=== PATIENT | female | born 1940 | race Caucasian/White ===

== ENCOUNTER 2016-06-06 11:36 | Inpatient (IN) | payer MEDICARE ==
[2016-06-06] VITALS (7 sets, daily range): BP systolic 83–142
[~2016-06-06] VITALS: Ht 170.2 cm; Wt 67.1 kg
--- NOTE | 2016-06-06 11:50 | NUR ---
pt. placed in bed 3, assumed pt. care
--- NOTE | 2016-06-06 11:55 | NUR ---
Dr. Peace at bedside examining the pt.
[2016-06-06] MEDS ORDERED: RACEPINEPHRINE HCL 0.5 ML VIAL.NEB INH ONE (12:00)
[2016-06-06] MEDS ORDERED: DEXAMETHASONE SOD PHOSPHATE 10 MG/ML VIAL IVP ONE (12:00)
[2016-06-06] MEDS ORDERED: CLINDAMYCIN 600 mg/50mL D5W 50 ML IV ONE (12:00)
--- NOTE | 2016-06-06 12:00 | NUR ---
Pt. to ER awake alert verbal but only syas " yes" to every question, not able to communicate provided pen and paper for communication, touches and point to her throat, states "yes" to pain in her throat, sent from [facility] ( [facility] ), pt. present with phlegm/saliva in mouth, unable to swallow in and communicate otherwise stable VSS at this time, Hx of depression
--- NOTE | 2016-06-06 12:04 | NUR ---
RT AT BEDSIDE FOR BREATHING TREATMENT
--- NOTE | 2016-06-06 12:08 | NUR ---
LAB AT BEDSIDE FOR BLOOD DRAW
--- NOTE | 2016-06-06 12:16 | NUR ---
PT. OUT TO RADILOGY VIA [facility]
[2016-06-06 12:28] LABS: BASOPHILS % (AUTO) 0.4 % (0.0-2.0); EOSINOPHILS # (AUTO) 0.2 K/uL (0.0-0.4); EOSINOPHILS % (AUTO) 2.4 % (0.0-4.0); HEMATOCRIT 43.3 % (36-48); HEMOGLOBIN 14.6 g/dL (12.0-16.0); LYMPHOCYTES # (AUTO) 1.5 K/uL (1.0-5.5); LYMPHOCYTES % (AUTO) 19.6 % (20.5-51.5); MEAN CORPUSCULAR HEMOGLOBIN 31 pg (27-31); MEAN CORPUSCULAR HGB CONC 34 % (32-36); MEAN CORPUSCULAR VOLUME 91 fL (79.0-98.0); MONOCYTES # (AUTO) 0.6 K/uL (0.0-1.0); MONOCYTES % (AUTO) 7.4 % (1.7-9.3); NEUTROPHILS # (AUTO) 5.4 K/uL (1.8-7.7); NEUTROPHILS % (AUTO) 70.2 % (40.0-70.0); PLATELET COUNT (AUTO) 247 K/uL (130-430); RED BLOOD CELL COUNT(AUTO) 4.75 MIL/uL (4.2-6.2); WHITE BLOOD COUNT (AUTO) 7.7 K/uL (4.8-10.8)
[2016-06-06 12:32] LABS: ANION GAP 6 (5-15); CALCIUM 9.8 mg/dL (8.4-11.0); CHLORIDE 105 mmol/L (98-107); CREATININE 1.16 mg/dL (0.55-1.30); GLUCOSE 125 mg/dL (70-99); SODIUM SERUM 141 mmol/L (136-145); UREA NITROGEN, BLOOD 29 mg/dL (8-21)
--- NOTE | 2016-06-06 12:35 | NUR ---
# 22 gauge angiocath placed to rh. Use of asceptic technique. Opsite placed over site. Blood return noted. Flushed with 10 cc of normal saline. No evidence of infiltration noted. Patient tolerated well.
[2016-06-06 12:37] LABS: ALANINE AMINOTRANSFERASE 24 U/L (12-78); ALBUMIN 3.6 g/dL (3.4-4.8); ASPARTATE AMINOTRANSFERASE 29 U/L (10-37); TOTAL BILIRUBIN 0.6 mg/dL (0.0-1.0); TOTAL PROTEIN, SERUM 7.3 g/dL (6.4-8.3)
--- NOTE | 2016-06-06 12:55 | NUR ---
pt. provided with pen and a paper to write on to better understand her needs. pt. wrote " used it write" does not write anything else, gets very emotional and startes to weep every time there is an attempt to communicate
[2016-06-06] MEDS ORDERED: LORazepam 2 MG/ML VIAL (FOR ER USE) IVP ONE ×2 (13:15→17:30)
--- NOTE | 2016-06-06 14:10 | NUR ---
pt. out for CT via [facility]
[2016-06-06] MEDS ORDERED: IOHEXOL 100 ML IV ONE (14:20)
--- NOTE | 2016-06-06 14:30 | NUR ---
pt. back to room [address]
--- NOTE | 2016-06-06 15:10 | NUR ---
pt. was given a sip of water as per request however found unable to swallow
--- NOTE | 2016-06-06 16:22 | NUR ---
pt. was informed that she will be admittied to the hospital.
[2016-06-06] MEDS ORDERED: ONDANSETRON HCL 4 MG/2 ML VIAL IVP ONE (17:00)
--- NOTE | 2016-06-06 17:00 | NUR ---
dr. Johnson changed orders from Med Surg to ICU admit
[2016-06-06] MEDS ORDERED: SENN8.8S12 GT (17:44)
[2016-06-06] MEDS ORDERED: PARO-41 PO (17:44)
[2016-06-06] MEDS ORDERED: GABA-529 PO (17:44)
[2016-06-06] MEDS ORDERED: HYDR-1189 PO (17:44)
[2016-06-06] MEDS ORDERED: POTA-118 PO (17:44)
[2016-06-06] MEDS ORDERED: LISI40TA4 PO (17:44)
[2016-06-06] MEDS ORDERED: ATOR20TA64 PO (17:44)
[2016-06-06] MEDS ORDERED: DOCU-144 PO (17:44)
[2016-06-06] MEDS ORDERED: HYDR-4037 PO (17:44)
--- NOTE | 2016-06-06 17:45 | NUR ---
medication reconciliation completed
--- NOTE | 2016-06-06 17:50 | NUR ---
mrsa collected and sent to lab
--- NOTE | 2016-06-06 17:55 | NUR ---
Patient will be admitted to care of dr. miller. Admitted to icu unit. Will go to room 7. Belongings list completed. Summary report printed. Report will be given at bedside.
--- NOTE | 2016-06-06 18:00 | NUR ---
INITIAL NOTES ADMITTED PATIENT FROM ER PER [facility] WITH A DIAGNOSIS OF NECK MASS /NECK PAIN.ALERT AND ORIENTED WITH EXPRESSIVE APHASIA.DROOLING WITH FEW EPISODES OF NONPRODUCTIVE COUGH.BREATHING EVEN AND UNLABORED.COMPLAINING OF PAIN TO BILATERAL NECK.WITH IV SALINE LOCK TO RIGHT HAND;INTACT AND PATENT.ABLE TO MOVE SELF FROM GURNEY TO BED WITH ASSIST.SAFETY AND FALL PRECAUTIONS IN PLACE.ORIENTED TO ROOM AND FACILITY.CALL LIGHT WITHIN REACH.
--- NOTE | 2016-06-06 18:45 | NUR ---
CALLED DR. ZHANG AND DR. FITZPATRICK FOR CONSULTS. NURSE IS AWARE.
--- NOTE | 2016-06-06 19:00 | NUR ---
DR. RAYMOND, DR. RAYMOND WAS PAGED REGARDING HEART RATE. RETURNED CALL AND WAS NOTIFIED OF HEART RATE 130-140 AT [facility]. ORDERS RECEIVED FOR STAT ECG, CXR AND CONSULT FOR DR. HOWARD.
--- NOTE | 2016-06-06 19:15 | NUR ---
PATIENT ON BED AWAKE.STABLE.NO ACUTE DISTRESS.ENDORSED TO NEXT SHIFT ACCORDINGLY
--- NOTE | 2016-06-06 20:54 | NUR ---
DR ANITA Xavier here evaluating pt.
[2016-06-06] MEDS ORDERED: DIGOXIN 0.25 MG TABLET PO ONE (21:15)
[2016-06-06] MEDS ORDERED: ENOXAPARIN SODIUM 60 MG/0.6 ML SYRINGE SUBCUT ONE (21:30)
--- NOTE | 2016-06-06 21:30 | NUR ---
ASSUMED PT CARE FROM PREVIOUS RN, PT AA. VERY ANXIOUS, AND RESTLESS. APHASIC, FRUSTRATED WHILE TRYING TO COMMUNICATE. TRYING TO WRITE WITH LT HAND RT HAND IS WEAK FROM PREVIOUS STROKE. CAN'T WRITE ANYTHING, WRITING " DODODOD". GAVE HER REASSURANCE AND TLC. MADE HER COMFORTABLE.
[2016-06-06] MEDS ORDERED: cefTRIAXone 1 GM VIAL ONE (21:53)
[2016-06-06 21:55] LABS: PROTHROMBIN TIME 10.8 SECS (9.5-12.5)
--- NOTE | 2016-06-06 22:00 | NUR ---
IVF AND IVPB ALL STARTED As per order. LOVENOX GIVEN PER 'S ORDER AFTER NOTIFIED HIM WITH PT INR RESULT.ALSO MED WITH DIGOXIN 0.25 MG IV HR IS 140.
[2016-06-06] MEDS: D5/0.45 NS 1,000 ML IV SCH (22:04)
[2016-06-06] MEDS: cefTRIAXone 1 GM IVPB PREMIX 50 ML IV SCH (22:07)
[2016-06-06] MEDS ORDERED: DIGOXIN 0.5 MG/2 ML AMP ONE (22:29)
[2016-06-06] MEDS ORDERED: DIGOXIN 0.5 MG/2 ML AMP IVP ONE (22:30)
--- NOTE | 2016-06-06 22:30 | NUR ---
PAIN, PT C/O PAIN ALL THE WAY FROM MID BACK TO FOOT. MED WITH DILAUDID PER ORDER.
[2016-06-06] MEDS: HYDROmorphone 1 MG INJ. 1 MG/ML AMPUL IVP PRN (22:31)
[2016-06-07] VITALS (24 sets, daily range): BP systolic 90–163
--- NOTE | 2016-06-07 01:00 | NUR ---
HR, RHYTHM CONTROLLED AFIB. PT SLEEPING . NO DISTRESS NOTED.
--- NOTE | 2016-06-07 05:30 | NUR ---
CHG BATH, CHG BATH GIVEN .MADE PT COMFORTABLE. VOIDED VIA BEDPAN.
[2016-06-07] MEDS: D5/0.45 NS 1,000 ML IV SCH ×2 (06:20→14:17)
--- NOTE | 2016-06-07 07:13 | NUR ---
REPORT GIVEN TO ONCOMING RN.
[2016-06-07 07:23] LABS: PROTHROMBIN TIME 31.4 SECS (9.5-12.5)
[2016-06-07 07:24] LABS: INR 2.8 (0.8-1.2)
--- NOTE | 2016-06-07 08:00 | NUR ---
AM ASSESSMENT. PT MAKING EYE CONTACT, AND TRIED TO COMMUNICATE USING PEN AND PAPER, ONE LETTER SOUND HEARD FROM HER, TEARY AFTER MANY ATTEMPTS TO COMMUNICATE, BED ALVARADO WAS OFFERED AND EAGERLY TURNED AND LIFTED HER HIPS WHILE IN BED, DISPOSABLE SHEET ALREADY SOILED, PERINEAL CARE PROVIDED AFTER SHE VOIDED A SMALL AMOUNT.
--- NOTE | 2016-06-07 08:41 | NUR ---
CONSULT. DR HOWARD WENT TO EXAMINE PT. PT COMPLAINED OF GENERALIZED PAIN, POINTED FROM BODY TO TOES.
[2016-06-07] MEDS: HYDROmorphone 1 MG INJ. 1 MG/ML AMPUL IVP PRN ×3 (08:53→21:55)
--- NOTE | 2016-06-07 08:53 | NUR ---
PAIN. MEDICATED PT WITH DILAUDID 1 MG IVP.
[2016-06-07] MEDS: DIGOXIN 0.5 MG/2 ML AMP IVP SCH (08:54)
[2016-06-07] MEDS: ENOXAPARIN SODIUM 60 MG/0.6 ML SYRINGE SUBCUT SCH ×2 (08:54→21:31)
[2016-06-07 09:13] LABS: BASOPHILS % (AUTO) 0.3 % (0.0-2.0); HEMATOCRIT 38.7 % (36-48); HEMOGLOBIN 13.1 g/dL (12.0-16.0); LYMPHOCYTES # (AUTO) 1.8 K/uL (1.0-5.5); LYMPHOCYTES % (AUTO) 18.3 % (20.5-51.5); MEAN CORPUSCULAR HEMOGLOBIN 31 pg (27-31); MEAN CORPUSCULAR HGB CONC 34 % (32-36); MEAN CORPUSCULAR VOLUME 92 fL (79.0-98.0); MONOCYTES # (AUTO) 0.8 K/uL (0.0-1.0); MONOCYTES % (AUTO) 8.5 % (1.7-9.3); NEUTROPHILS # (AUTO) 7.4 K/uL (1.8-7.7); NEUTROPHILS % (AUTO) 72.9 % (40.0-70.0); PLATELET COUNT (AUTO) 230 K/uL (130-430); RED BLOOD CELL COUNT(AUTO) 4.22 MIL/uL (4.2-6.2)
[2016-06-07 09:30] LABS: ANION GAP 3 (5-15); CHLORIDE 105 mmol/L (98-107); CREATININE 1.15 mg/dL (0.55-1.30); GLUCOSE 138 mg/dL (70-99); POTASSIUM 3.8 mmol/L (3.5-5.1); SODIUM SERUM 137 mmol/L (136-145); UREA NITROGEN, BLOOD 31 mg/dL (8-21)
[2016-06-07 09:33] LABS: ALANINE AMINOTRANSFERASE 19 U/L (12-78); ALBUMIN 3.2 g/dL (3.4-4.8); ASPARTATE AMINOTRANSFERASE 20 U/L (10-37); TOTAL BILIRUBIN 0.3 mg/dL (0.0-1.0); TOTAL PROTEIN, SERUM 6.9 g/dL (6.4-8.3)
--- NOTE | 2016-06-07 10:12 | NUR ---
consult for dr. mendez called spoke to radha dialed [phone]
[2016-06-07] MEDS ORDERED: *PPN PER PHARMACY XX PRN (10:15)
[2016-06-07] MEDS ORDERED: DEXTROSE 50% JECT 50 ML DISP.SYRIN IVP PRN (10:15)
--- NOTE | 2016-06-07 10:25 | NUR ---
PICC. CONSENT SIGNED BY PT AFTER EXPLANATION ON THE RISK AND BENEFITS.
[2016-06-07 11:13] LABS: PHOSPHORUS 3.8 mg/dL (2.7-4.5)
--- NOTE | 2016-06-07 11:15 | NUR ---
ECHOCARDIOGRAM. STEEL ANALYST REPORTED EJECTION FRACTION 66%.
--- NOTE | 2016-06-07 11:55 | NUR ---
PICC. NEW MIDLINE CATHETER IN LEFT A/C, NOTED BLEEDING TO SITE.
--- NOTE | 2016-06-07 12:05 | NUR ---
MIDLINE CATH. CHARGE NURSE WRAPPED COBAN ELASTIC BANDAGE TO LEFT A/C .
--- NOTE | 2016-06-07 12:23 | NUR ---
CONSULT. DR DEJESUS CALLED, REPORTED TO MD ABOUT RESULT OF CT SCAN OF THE NECK, STATED THAT HE DOES NOT SEE PT UNDER [employer].
--- NOTE | 2016-06-07 12:55 | NUR ---
consult for an keyes (dr. pearson special education kindergarten teacher) called spoke to dot dialed [phone]
--- NOTE | 2016-06-07 13:11 | NUR ---
CONSULT. DR DELUCA, N CALLED. NOTIFIED MD OF PT'S STATUS. SUGGESTED A NECK BIOPSY. MD STATED THAT HE WILL COME IN TO SEE PT TONIGHT OR EARLY IN THE MORNING.
[2016-06-07] MEDS ORDERED: [UNRECOGNIZED DRUG - OTHER] IV SCH ×11 (13:15)
[2016-06-07] MEDS ORDERED: POTASSIUM CHLORIDE IV SCH ×11 (13:15)
[2016-06-07] MEDS ORDERED: TPN PERIPHERAL IV SCH ×11 (13:15)
[2016-06-07] MEDS ORDERED: SODIUM ACETATE IV SCH ×11 (13:15)
[2016-06-07] MEDS ORDERED: IOHEXOL 100 ML IV ONE (13:28)
--- NOTE | 2016-06-07 13:45 | NUR ---
TO RADIOLOGY DEPT. TRANSPORTED TO CT SCAN DEPT VIA PORTABLE CARDIAC MONITORING.
--- NOTE | 2016-06-07 14:00 | NUR ---
TO ICU. RETURNED TO ROOM 7 WITHOUT ANY SIGNS OF DISTRESS.
[2016-06-07] MEDS: INSULIN REGULAR, HUMAN 100 UNITS/ML, 10 ML VIAL (novoLIN R) SUBCUT PRN ×2 (14:31→21:59)
--- NOTE | 2016-06-07 15:06 | NUR ---
PAIN. PT ANGRY WITH FRUSTRATION DURING INTERACTION, DILAUDID 1 MG IVP FOR BODY DISCOMFORTS GIVEN.
[2016-06-07] MEDS: FAT EMULSIONS 250 ML IV SCH (15:22)
[2016-06-07] MEDS: SODIUM ACETATE IV SCH ×11 (15:25)
[2016-06-07] MEDS: TPN PERIPHERAL IV SCH ×11 (15:25)
[2016-06-07] MEDS: POTASSIUM CHLORIDE IV SCH ×11 (15:25)
[2016-06-07] MEDS: [UNRECOGNIZED DRUG - OTHER] IV SCH ×11 (15:25)
--- NOTE | 2016-06-07 15:25 | NUR ---
REST. PT CALM AT THIS HOUR, CONTINUE TO MONITOR.
[2016-06-07] MEDS: LORazepam 2 MG/ML VIAL IVP PRN (17:40)
--- NOTE | 2016-06-07 17:40 | NUR ---
ANXIETY. PT SEEN WAVING HER HAND TO STAFF, EYES TEARY, MOANING SOUND, ATTEMPTED TO COMMUNICATE THRU WRITING, WOULD REPEAT ONE LETTER, STUTTER SOUND, GOT UPSET WHEN SHE COULD NOT GIVE HER THOUGHTS, MEDICATED WITH ATIVAN 0.5 MG IVP TO REDUCE HER ANXIETY.
[2016-06-07] MEDS ORDERED: HALOPERIDOL LACTATE 5 MG/ML VIAL IVP ONE (18:30)
--- NOTE | 2016-06-07 18:43 | NUR ---
ANXIETY. PT SEEN TRYING TO GET OUT OF HER BED ALTHOUGH SHE WAS TOLD TO GET HELP FIRST, GOT ANGRIER WHEN DISCOURAGED ON HER BEHAVIOR, MOANING DURING INTERACTION, HALDOL 1 MG IVP GIVEN.
--- NOTE | 2016-06-07 19:00 | NUR ---
REPORT. GIVEN TO ONCOMING AIR REDUCTION EQUIPMENT OPERATOR NURSE.
--- NOTE | 2016-06-07 19:30 | NUR ---
pt.assessed.pt.presents stable status.pt.presents mid line:lt.arm.pt.receiving the administration:ppn/lipids,iv fluids via line.pt.presents iv access:rt.hand:locked.pt.presents room air:o2 sat%=96%.pt.presents expressive asphasia: pt.speech garbled.slurred.alternative method:communication via writing board.call light w/in pt's reach. Addendum: 06/08/16 at 0318 by Jovi Siegel RN pt.presents telemetry status.telemetry presents a-fib;controlled.
--- NOTE | 2016-06-07 20:30 | NUR ---
pt.requested the bedpan.i have assisted pt.urine return.measured.no other request @this hour. call light placed w/in pt's reach.
--- NOTE | 2016-06-07 21:30 | NUR ---
blood glucose assessed:152mg/dl.i have conveyed to the pt.the necessity og the monitoring of the blood glucose. regarding the administration of the ppn:demonstrating bag to the pt.pt.nodded head gesture understanding. 2 units;regualr insulin administered per the sliding scale.erasto reviewed and cosigned for the insulin.
[2016-06-07] MEDS: cefTRIAXone 1 GM IVPB PREMIX 50 ML IV SCH (21:31)
--- NOTE | 2016-06-07 22:00 | NUR ---
pt.assessed.pt.requesting pain medication.confirmed request utilizing communication board.i have administered dilaudid:2mg ivp.to follow up pain efficacy per protocol.call light placed w/in pt's reach.
[2016-06-08] VITALS (17 sets, daily range): BP systolic 91–157
--- NOTE | 2016-06-08 | NUR ---
pt.assessed.pt.presents stable status.v/s assessed.values w/in normal limits.iv fluids infusing,ppn/lipids infusing. pt.presents quiescent affect;calm,asleep.call light w/in pt's reach.
--- NOTE | 2016-06-08 00:30 | NUR ---
pt.assessed.pt.requested the bedpan.pt.stating that she senses a bowel movement.i have returned to assess the pt. no bowel movement manifested.bedpan;emptied presented to pt's view.call light placed w.in pt's reach.
--- NOTE | 2016-06-08 01:00 | NUR ---
i have assessed and changed the mid line dressing:lt.antecubital.blood saturated dressing.dressing changed per sterile technique.pt.tolerated the procedure.i have cleaned the lips and applied lip moisturizure.i have suctioned oral cavity.
--- NOTE | 2016-06-08 02:00 | NUR ---
ASSUMED CARE ASSUMED CARE OF PT, REPORT RECEIVED AT BEDSIDE FROM AYDEN JACKSON.
--- NOTE | 2016-06-08 06:46 | NUR ---
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 ISOLATION PRECAUTIONS IMPLEMENTED.
[2016-06-08 06:51] LABS: BASOPHILS % (AUTO) 0.5 % (0.0-2.0); EOSINOPHILS # (AUTO) 0.2 K/uL (0.0-0.4); EOSINOPHILS % (AUTO) 2.5 % (0.0-4.0); HEMATOCRIT 37.9 % (36-48); HEMOGLOBIN 12.9 g/dL (12.0-16.0); LYMPHOCYTES # (AUTO) 1.9 K/uL (1.0-5.5); LYMPHOCYTES % (AUTO) 20.9 % (20.5-51.5); MEAN CORPUSCULAR HEMOGLOBIN 31 pg (27-31); MEAN CORPUSCULAR HGB CONC 34 % (32-36); MEAN CORPUSCULAR VOLUME 91 fL (79.0-98.0); MONOCYTES # (AUTO) 0.7 K/uL (0.0-1.0); MONOCYTES % (AUTO) 7.8 % (1.7-9.3); NEUTROPHILS # (AUTO) 6.5 K/uL (1.8-7.7); NEUTROPHILS % (AUTO) 68.3 % (40.0-70.0); PLATELET COUNT (AUTO) 210 K/uL (130-430); RED BLOOD CELL COUNT(AUTO) 4.17 MIL/uL (4.2-6.2); RED CELL DISTRIBUTION WIDTH 13.4 % (9.0-15.0); WHITE BLOOD COUNT (AUTO) 9.3 K/uL (4.8-10.8)
[2016-06-08 06:56] LABS: ALANINE AMINOTRANSFERASE 20 U/L (12-78); ALBUMIN 3.3 g/dL (3.4-4.8); ANION GAP 5 (5-15); ASPARTATE AMINOTRANSFERASE 29 U/L (10-37); CALCIUM 8.9 mg/dL (8.4-11.0); CHLORIDE 105 mmol/L (98-107); CREATININE 0.74 mg/dL (0.55-1.30); GLUCOSE 99 mg/dL (70-99); POTASSIUM 3.6 mmol/L (3.5-5.1); SODIUM SERUM 140 mmol/L (136-145); TOTAL BILIRUBIN 0.2 mg/dL (0.0-1.0); TOTAL PROTEIN, SERUM 6.8 g/dL (6.4-8.3); UREA NITROGEN, BLOOD 16 mg/dL (8-21)
[2016-06-08 07:18] LABS: INR 1.7 (0.8-1.2); PROTHROMBIN TIME 19.1 SECS (9.5-12.5)
--- NOTE | 2016-06-08 07:19 | NUR ---
CLOSING ALL NEEDS MET. ENDORSED CARE TO DAY NURSE AYDEN CADROSO.
[2016-06-08] MEDS: ENOXAPARIN SODIUM 60 MG/0.6 ML SYRINGE SUBCUT SCH ×2 (08:15→21:22)
[2016-06-08] MEDS: HYDROmorphone 1 MG INJ. 1 MG/ML AMPUL IVP PRN ×2 (08:17→19:23)
--- NOTE | 2016-06-08 08:17 | NUR ---
PAIN. PT SEEN BY DR HOWARD, TO HOLD LOVENOX, PT PROBABLY WILL HAVE A BIOPSY OF THE MASS IN HER NECK. PT ALERT, EYES MOIST FROM CRYING, ASSESSED FOR PAIN, SHE RUBBED THE UPPER ABDOMEN AND WENT DOWN TO HER THIGHS, DILAUDID 1 MG IVP ADMINISTERED.
--- NOTE | 2016-06-08 08:40 | NUR ---
REST. PT ASSESSED FOR BODY DISCOMFORT, FLAT AFFECT, EYES LOOKING STRAIGHT TO STAFF, REPEATED QUESTION, PT NO RESPONSE AT THIS TIME.
--- NOTE | 2016-06-08 08:58 | NUR ---
Nutrition Update Crispin Scale 15 noted. Pt admitted for neck pain, neck mass. Diet: regular BMI: 23.2 kg/m2 RD to follow per nutrition care standards.
[2016-06-08] MEDS: DIGOXIN 0.5 MG/2 ML AMP IVP SCH (09:26)
--- NOTE | 2016-06-08 09:38 | NUR ---
consult for dr. stanley called spoke to felipe dialed [phone]
[2016-06-08] MEDS ORDERED: PARoxetine HCL 20 MG TABLET PO ONE (09:45)
[2016-06-08] MEDS: TPN PERIPHERAL IV SCH ×11 (12:20)
[2016-06-08] MEDS: POTASSIUM CHLORIDE IV SCH ×11 (12:20)
[2016-06-08] MEDS: [UNRECOGNIZED DRUG - OTHER] IV SCH ×11 (12:20)
[2016-06-08] MEDS: SODIUM ACETATE IV SCH ×11 (12:20)
--- NOTE | 2016-06-08 12:45 | NUR ---
CONSULT. DR DELUCA HERE AND EXAMINED PT.
--- NOTE | 2016-06-08 13:45 | NUR ---
TEST. SWALLOWING EVALUATION IN PROGRESS.
--- NOTE | 2016-06-08 14:00 | NUR ---
S.T. SWALLOW EVAL COMPLETED. PT PRESENTS W/ MOD ORAL DYSPHAGIA W/ PROLONGED MASTICATION, R LEAKAGE ON SOLIDS, ORAL RESIDUE AND SPITTING OUT OF RESIDUE ON SOLIDS. NO S/S OF ASPIRATION. REC: PUREE DIET. NURSES SHARRON AND WALKER NOTIFIED. [id number] CJ [id number] CJ [id number] CJ NOMS LEVEL 5
[2016-06-08] MEDS: FAT EMULSIONS 250 ML IV SCH (14:20)
--- NOTE | 2016-06-08 14:30 | NUR ---
RECEIVED REPORT AND ASSUMED CARE. PT TRANSFERRED VIA WHEELCHAIR TO 105A WITH BELONGINGS. CALL PARMAR IN REACH. SIDE RAILS UP.
--- NOTE | 2016-06-08 17:30 | NUR ---
PT FED HERSELF DINNER WITHOUT PROBLEMS. NO COUGHING HEARD. WILL CONTINUE TO MONITOR.
--- NOTE | 2016-06-08 19:00 | NUR ---
DR BASS IN TO SEE PT.
--- NOTE | 2016-06-08 19:15 | NUR ---
REPORT GIVEN TO ONCOMING NURSE.
--- NOTE | 2016-06-08 19:50 | NUR ---
Initial Notes Patient laying in bed, awake and alert, speech xzylpcp-kppgum-Oy: CVA. No SOB noted, on room air. IV site patent, flushes well, infusing lipids and other fluid as ordered. No s/s of hyper/hypoglycemia. No s/s of nausea/vomiting at this time. Patient repositioned self in bed. Contact isolation maintained. Fall precautions maintained. Goal of pain management, cardiac and GI stability and safety this shift. Will continue to monitor.
--- NOTE | 2016-06-08 22:05 | NUR ---
Notes Patient resting in bed. No s/s of pain or discomfort noted. No SOB noted. IV site patent, flushes well, infusing fluids as ordered. Will continue to monitor.
[2016-06-08] MEDS ORDERED: cefTRIAXone 1 GM VIAL ONE (22:13)
[2016-06-08] MEDS: cefTRIAXone 1 GM IVPB PREMIX 50 ML IV SCH (22:18)
[2016-06-08] MEDS: HALOPERIDOL LACTATE 5 MG/ML VIAL IVP PRN (22:47)
--- NOTE | 2016-06-08 23:56 | NUR ---
Notes Recently medicated patient with Haldol, pt noted to be restless and agitated. Patient trying to communicate and write down what she wants to say, unable to understand patient. Charge nurse aware, able to help with patient. No SOB noted. IV site patent, flushes well, infusing fluids as ordered. Will continue to monitor.
[2016-06-09] VITALS (7 sets, daily range): BP systolic 114–135
[2016-06-09] MEDS: LORazepam 2 MG/ML VIAL IVP PRN ×2 (00:45→22:43)
--- NOTE | 2016-06-09 04:23 | NUR ---
Notes Patient sleeping at this time. No s/s of pain or discomfort noted. No SOB noted. IV site patent, flushes well, infusing fluids as ordered. Will continue to monitor.
--- NOTE | 2016-06-09 06:49 | NUR ---
Closing Notes No SOB noted, on room air. IV site patent, flushes well, infusing lipids and other fluid as ordered. No s/s of hyper/hypoglycemia. No s/s of nausea/vomiting at this time. Patient repositioned self in bed. Contact isolation maintained. Fall precautions maintained. Goal of pain management, cardiac and GI stability and safety met. Will continue to monitor.
[2016-06-09] MEDS ORDERED: LIDOCAINE/EPI 1% 1:100000 20 ML VIAL INJ ONE (07:30)
[2016-06-09] MEDS ORDERED: NS IRRIG SOLN 1000 ML IR ONE (07:30)
--- NOTE | 2016-06-09 07:30 | NUR ---
AM ROUNDS PATIENT RESTING IN BED, AWAKE, ALERT AND ORIENTED X4, PATIENT HAS GARBLED SPEECH AND USES A PENCIL AND PAPER TO COMMUNICATE NEEDED, PATIENT DENIES PAIN, ASSESSMENT COMPLETE, EDUCATED THE PATIENT PEDIATRIC AUDIOLOGIST LIGHT SYSTEM AND TO CALL FOR ANY ASSISTANCE, PATIENT NODDED IN UNDERSTANDING AT THIS TIME, WILL CONTINUE TO MONITOR, BED IN LOWEST POSITION, THREE SIDE RAILS UP, BED ALARM ON, BED CLOSE TO NURSE'S STATION, FALL, ASPIRATION AND ISOLATION PRECAUTIONS IN PLACE.
[2016-06-09 07:38] LABS: INR 1.1 (0.8-1.2); PROTHROMBIN TIME 12.3 SECS (9.5-12.5)
[2016-06-09] MEDS: ENOXAPARIN SODIUM 60 MG/0.6 ML SYRINGE SUBCUT SCH ×3 (08:18→21:04)
[2016-06-09] MEDS: PARoxetine HCL 20 MG TABLET PO SCH (08:18)
--- NOTE | 2016-06-09 08:20 | NUR ---
RN ROUNDS PATIENT ATTEMPTING TO GET OUT BED TO THE RESTROOM, PATIENT REEDUCATED TO CALL FOR ASSISTANCE, PATIENT HAS WEAKNESS AND UNSTEADY GAIT, ASSISTED THE PATIENT TO THE RESTROOM AND BACK TO BED, PLACED A BEDSIDE COMMODE AT THE BEDSIDE, EDUCATED THE PATIENT ON MEDICATION AND POTENTIAL SIDE EFFECTS, PATIENT VERBALIZED UNDERSTANDING AND TOLERATED WELL, PATIENT REFUSED LOVENOX AT THIS TIME, EXPLAINED BENEFITS OF THIS MEDICATION, PATIENT STILL REFUSED, NO OTHER NEEDS AT THIS TIME, BED IN LOWEST POSITION, BED ALARM ON, BED CLOSE TO NURSE'S STATION, FALL, ASPIRATION, ISOLATION PRECAUTIONS IN PLACE, CALL LIGHT NEXT TO THE PATIENTS' HAND.
[2016-06-09] MEDS: DIGOXIN 0.5 MG/2 ML AMP IVP SCH (08:24)
--- NOTE | 2016-06-09 08:42 | NUR ---
DR GRAJEDA ROUNDS HERE TO SEE THE PATIENT AT THIS TIME, WILL FOLLOW UP WITH ANY NEW ORDERS.
--- NOTE | 2016-06-09 10:03 | NUR ---
CONSULTATION CALLED REASON FOR CONSULT: NECK LYMPH NODES WHO WAS NOTIFIED: AUBREE CONSULTING DR: LENI ASCENCIO TONGUE LINING STITCHER NUMBER: [phone]
--- NOTE | 2016-06-09 10:30 | NUR ---
RN ROUNDS PATIENT RESTING IN BED, EYES CLOSED, BREATHING IS EVEN AND UNLABORED, NO SIGNS OF DISTRESS, BED IN LOWEST POSITION, THREE SIDE RAILS UP, BED ALARM ON, BED CLOSE TO NURSE'S STATION, FALL, ASPIRATION AND ISOLATION PRECAUTIONS IN PLACE, WILL CONTINUE TO MONITOR, SPOKE WITH THE PATIENT'S DAUGHTER AND CAREGIVER OVER THE PHONE, DISCUSSED PLAN OF CARE AND POTENTIAL RIGHT NECK BIOPSY.
[2016-06-09] MEDS: SODIUM ACETATE IV SCH ×11 (10:35)
[2016-06-09] MEDS: [UNRECOGNIZED DRUG - OTHER] IV SCH ×11 (10:35)
[2016-06-09] MEDS: TPN PERIPHERAL IV SCH ×11 (10:35)
[2016-06-09] MEDS: POTASSIUM CHLORIDE IV SCH ×11 (10:35)
[2016-06-09] MEDS: METOPROLOL TARTRATE 5 MG/5 ML VIAL IVP PRN (11:09)
--- NOTE | 2016-06-09 11:09 | NUR ---
HIGH BLOOD PRESSURE SPORTS BOOK BOARD ATTENDANT INFORMED RN OF HIGH BLOOD PRESSURE 180/88, WILL FOLLOW UP WITH MEDICATION AND WILL REASSESS BLOOD PRESSURE, WILL CONTINUE TO MONITOR, PATIENT BED IN LOWEST POSITION, THREE SIDE RAILS UP, BED ALARM ON, BED CLOSE TO NURSE'S STATION, FALL, ASPIRATION AND ISOLATION PRECAUTIONS IN PLACE, CALL LIGHT NEXT TO THE PATIENT'S HAND, WILL CONTINUE TO MONITOR.
--- NOTE | 2016-06-09 11:45 | NUR ---
BLOOD PRESSURE REASSESSMENT RE ASSESSED BLOOD PRESSURE, 135/75 AT THIS TIME, NO SIGNS OF DISTRESS.
--- NOTE | 2016-06-09 13:09 | NUR ---
RN ROUNDS PATIENT RESTING IN BED, EYES CLOSED, BREATHING IS EVEN AND UNLABORED, NO SIGNS OF DISTRESS, BED IN LOWEST POSITION, THREE SIDE RAILS UP, BED ALARM ON, BED CLOSE TO NURSE'S STATION, FALL, ASPIRATION AND ISOLATION PRECAUTIONS IN PLACE, CALL LIGHT NEXT TO THE PATIENT'S HAND, WILL CONTINUE TO MONITOR.
[2016-06-09] MEDS: HALOPERIDOL LACTATE 5 MG/ML VIAL IVP PRN (13:31)
--- NOTE | 2016-06-09 14:31 | NUR ---
PATIENT OFF THE UNIT FOR ULTRASOUND GUIDED BIOPSY WITH DR ASCENCIO, STABLE CONDITION.
[2016-06-09] MEDS: FAT EMULSIONS 250 ML IV SCH (16:19)
[2016-06-09] MEDS: HYDROmorphone 1 MG INJ. 1 MG/ML AMPUL IVP PRN (16:20)
--- NOTE | 2016-06-09 16:20 | NUR ---
PATIENT BACK ON THE UNIT STABLE CONDITION, COMPLAINING OF SEVERE NECK PAIN, EDUCATED ON PAIN MEDICATION AND POTENTIAL SIDE EFFECTS, PATIENT VERBALIZED UNDERSTANDING, IV SITE IS PATENT WITH NO SIGNS OF INFILTRATION, BED IN LOWEST POSITION, THREE SIDE RAILS UP, BED ALARM ON, FALL, ASPIRATION AND ISOLATION PRECAUTIONS IN PLACE, BED CLOSE TO NURSE'S STATION, CALL LIGHT IN THE PATIENT'S HAND.
--- NOTE | 2016-06-09 16:53 | NUR ---
SPOKE WITH DR SHERWOOD STATED TO DC PATIENT TO SNF WHEN BED AVAILABLE, POSSIBLY BACK TO [facility], WILL UPDATE CASE MANAGEMENT.
--- NOTE | 2016-06-09 18:16 | NUR ---
CLOSING NOTES PATIENT RESTING IN BED, ASPIRATION PRECAUTIONS IN PLACE, PATIENT IS FINISHING DINNER AT THIS TIME, ALL NEEDS MET, BED IN LOWEST POSITION, THREE SIDE RAILS UP, BED ALARM ON, BED CLOSE TO NURSE'S STATION, FALL AND ISOLATION PRECAUTIONS IN PLACE, CALL LIGHT NEXT TO THE PATIENT'S HAND, WILL ENDORSE REPORT TO NOC SHIFT NURSE.
--- NOTE | 2016-06-09 19:50 | NUR ---
Initial Notes Patient laying in bed, awake and alert, speech emwiykj-yrbkjx-Kv: CVA. No SOB noted, on room air. IV site patent, flushes well, infusing lipids, TPN and other fluid as ordered. No s/s of hyper/hypoglycemia. No s/s of nausea/vomiting at this time. Patient repositioned self in bed. Contact isolation maintained. Fall precautions maintained. Goal of pain management, cardiac and GI stability and safety this shift. Will continue to monitor.
--- NOTE | 2016-06-09 21:05 | NUR ---
PAGED: I PAGED DR. GRAJEDA @ [phone] I SPOKE WITH MITZY CHUNG I PAGED SECOND TIME @ I SPOKE WITH NIKIA EXCHANGE DR. GRAJEDA CALLED BACK @ [phone]
[2016-06-09] MEDS: cefTRIAXone 1 GM IVPB PREMIX 50 ML IV SCH (22:41)
--- NOTE | 2016-06-10 00:15 | NUR ---
Notes Recently medicated patient with Ativan, pt noted to be restless and agitated. Afebrile. No SOB noted. IV site patent, flushes well, infusing fluids as ordered. Will continue to monitor.
[2016-06-10] MEDS ORDERED: HYDR-1189 PO (03:37)
[2016-06-10] MEDS ORDERED: WARF3TAB2 PO (03:37)
[2016-06-10] MEDS ORDERED: PHEL5 PO (03:37)
[2016-06-10] MEDS ORDERED: WARF2TAB2 PO (03:37)
[2016-06-10] MEDS ORDERED: PARO-41 PO (03:37)
[2016-06-10] MEDS ORDERED: DOCU-144 PO (03:37)
[2016-06-10] MEDS ORDERED: SENN-153 PO ×2 (03:37)
[2016-06-10] MEDS ORDERED: LIP20 PO (03:37)
[2016-06-10] MEDS ORDERED: ALPR0.2583 PO ×2 (03:37)
[2016-06-10] MEDS ORDERED: HYDR-4037 PO (03:37)
[2016-06-10] MEDS ORDERED: GABA-529 PO (03:37)
[2016-06-10] MEDS ORDERED: LISI40TA4 PO (03:37)
[2016-06-10] MEDS ORDERED: ZOLP5TAB2 PO (03:37)
[2016-06-10 03:58] VITALS: BP_SYST 165
--- NOTE | 2016-06-10 04:00 | NUR ---
Notes Patient sleeping at this time, recently used the bedside commode to void-assisted pt. Afebrile. No SOB noted. IV site patent, flushes well, infusing fluids as ordered. Will continue to monitor.
[2016-06-10] MEDS: METOPROLOL TARTRATE 5 MG/5 ML VIAL IVP PRN (05:01)
[2016-06-10] MEDS: SODIUM ACETATE IV SCH ×11 (06:00)
[2016-06-10] MEDS: [UNRECOGNIZED DRUG - OTHER] IV SCH ×11 (06:00)
[2016-06-10] MEDS: TPN PERIPHERAL IV SCH ×11 (06:00)
[2016-06-10] MEDS: POTASSIUM CHLORIDE IV SCH ×11 (06:00)
[2016-06-10 06:04] VITALS: BP_SYST 145
--- NOTE | 2016-06-10 06:14 | NUR ---
Closing Notes No SOB noted, on room air. IV site patent, flushes well, infusing lipids, TPN and other fluid as ordered. No s/s of hyper/hypoglycemia. No s/s of nausea/vomiting at this time. Patient repositioned self in bed. Accucheck done- Blood sugar within normal limits. Contact isolation maintained. Fall precautions maintained. Goal of pain management, cardiac and GI stability and safety met. Will continue to monitor.
[2016-06-10 07:37] LABS: INR 1.1 (0.8-1.2); PROTHROMBIN TIME 11.6 SECS (9.5-12.5)
--- NOTE | 2016-06-10 07:46 | NUR ---
AM ROUNDS PATIENT RESTING IN BED, AWAKE, ALERT AND ORIENTED X4, PATIENT HAS GARBLED SPEECH AND USES A PENCIL AND PAPER TO COMMUNICATE NEEDED, PATIENT DENIES PAIN, ASSESSMENT COMPLETE, EDUCATED THE PATIENT STERILE PROCESSING TECHNICIAN LIGHT SYSTEM AND TO CALL FOR ANY ASSISTANCE, PATIENT NODDED IN UNDERSTANDING AT THIS TIME, WILL CONTINUE TO MONITOR, BED IN LOWEST POSITION, THREE SIDE RAILS UP, BED ALARM ON, BED CLOSE TO NURSE'S STATION, FALL, ASPIRATION AND ISOLATION PRECAUTIONS IN PLACE. Addendum: 06/10/16 at 0747 by Edgard Robison RN POST BIOPSY OF THE RIGHT NECK, DRESSING IN PLACE, CLEAN, DRY AND INTACT, WILL CONTINUE TO MONITOR.
[2016-06-10 07:57] LABS: ANION GAP 8 (5-15); CALCIUM 8.9 mg/dL (8.4-11.0); CHLORIDE 100 mmol/L (98-107); CREATININE 0.64 mg/dL (0.55-1.30); GLUCOSE 126 mg/dL (70-99); PHOSPHORUS 3.2 mg/dL (2.7-4.5); SODIUM SERUM 136 mmol/L (136-145); UREA NITROGEN, BLOOD 11 mg/dL (8-21)
[2016-06-10 07:59] LABS: POTASSIUM 2.9 mmol/L (3.5-5.1)
[2016-06-10 08:00] VITALS: BP_SYST 147
[2016-06-10] MEDS ORDERED: POTASSIUM CHLORIDE 20 MEQ TAB.PRT.SR PO ONE (08:15)
--- NOTE | 2016-06-10 09:01 | NUR ---
DISCHARGE PLANNING DC order to SNF. Faxed referral to [phone]. will follow up. Addendum: 06/10/16 at 1052 by Peggy ORTEGA Spoke with Mary in admitting patient accepted [facility] and will have bed available for patient once TPN has been completely weaned off. SABINO Field made aware. Any ambulance can be arranged. Placed transportation packet in nurse station. Addendum: 06/10/16 at 1104 by Peggy ORTEGA Patient assigned to room 140A RN to report [phone] bed available anytime. AYDEN Rene made aware. Called contracted ambulance [facility] [phone] spoke with Hattie arranged S transport corn picker 1pm. Patient has no known family to notify.
[2016-06-10] MEDS: PARoxetine HCL 20 MG TABLET PO SCH (09:11)
[2016-06-10] MEDS: ENOXAPARIN SODIUM 60 MG/0.6 ML SYRINGE SUBCUT SCH (09:13)
--- NOTE | 2016-06-10 09:15 | NUR ---
RN ROUNDS PATIENT RESTING IN BED, AWAKE, DENIES PAIN, EDUCATED NO MEDICATION AND POTENTIAL SIDE EFFECTS, PATIENT VERBALIZED UNDERSTANDING, CRUSHED MEDICATION AND PUT IN YOGURT, PATIENT TOLERATED WELL, ASPIRATION PRECAUTIONS IN PLACE, BED IN LOWEST POSITION, THREE SIDE RAILS UP, BED ALARM ON, BED CLOSE TO NURSE'S STATION, FALL AND ISOLATION PRECAUTIONS IN PLACE, CALL LIGHT NEXT TO THE PATIENT'S HAND.
[2016-06-10 09:40] VITALS: BP_SYST 147
--- NOTE | 2016-06-10 11:15 | NUR ---
RN ROUNDS PATIENT GETTING OUT OF BED WITHOUT ASSISTANCE, RE EDUCATED THE PATIENT TO THE BEDSIDE COMMODE, PATIENT TOLERATED WELL, DENIES PAIN, PATIENT RETURNED TO BED AND CHANGED INTO ORANGE GOWN FOR TRANSPORT, BED IN LOWEST POSITION, THREE SIDE RAILS UP, BED ALARM ON, BED CLOSE TO NURSE'S STATION, FALL, ASPIRATION AND ISOLATION PRECAUTIONS IN PLACE, CALL LIGHT IN THE PATIENT'S HAND., WILL CONTINUE TO MONITOR.
[2016-06-10 11:24] VITALS: BP_SYST 142
--- NOTE | 2016-06-10 12:20 | NUR ---
PATIENT REFUSED DRESSING CHANGE ON THE NECK OVER BIOPSY SITE.
--- NOTE | 2016-06-10 13:26 | NUR ---
PT TRANSFERRED Report given to JORDY HENSLEY at [facility]. Transfer packet with Transfer Orders and Medication Reconciliation form given to EMT with report. Exitcare provided. [facility] ID band removed, replaced with ID band with pt's name and . All belongings sent with patient. Patient left floor via gurney escorted by EMT in no distress.
== END 2016-06-10 13:30 | DRG 824 ==
LOC: SED 11:36 → SMU 16:49 → SIC 17:55 → STU 06-08 14:52
PROVIDERS: ADMIT Internal Medicine Hospice and Palliative Medicine; ATTEND Internal Medicine Hospice and Palliative Medicine
PROC: 07B10ZX Excision of Right Neck Lymphatic, Open Approach, Diagnostic (ICD-10-PCS; principal; 2016-06-09 15:30)
DX: C96.9 Malignant neoplasm of lymphoid, hematopoietic and related tissue, unspecified (principal); I69.351 Hemiplegia and hemiparesis following cerebral infarction affecting right dominant side; I48.0 Paroxysmal atrial fibrillation; R13.10 Dysphagia, unspecified; I10 Essential (primary) hypertension; F17.210 Nicotine dependence, cigarettes, uncomplicated; I48.2 Chronic atrial fibrillation; M47.816 Spondylosis without myelopathy or radiculopathy, lumbar region; F32.9 Major depressive disorder, single episode, unspecified; F41.9 Anxiety disorder, unspecified; M19.90 Unspecified osteoarthritis, unspecified site; M54.9 Dorsalgia, unspecified; R26.2 Difficulty in walking, not elsewhere classified; Z96.659 Presence of unspecified artificial knee joint; I69.320 Aphasia following cerebral infarction; Z79.01 Long term (current) use of anticoagulants; Z90.49 Acquired absence of other specified parts of digestive tract
CPT/HCPCS: 36415; 70490; 70491-TC; 71010; 71260-TC; 80048; 80053; 82962; 83615-TC; 83735-TC; 83880; 84100-TC; 84478-TC; 84484; 85025; 85610-TC; 87040-TC; 87081; 88305; 92610-GN; 93005; 93306; 94640; 96365; 96375; 96376; 99285; C1751; J0610; J0696; J1100; J1160; J1170; J1630; J1650; J1815; J2060; J2405; J3475; J3480; J3490; J7060; J7131; Q9967

== ENCOUNTER 2016-06-19 10:52 | Inpatient (IN) | payer MEDICARE, OTHER ==
[~2016-06-19] VITALS: Ht 167.6 cm; Wt 61.7 kg
[2016-06-19 10:52] VITALS: BP_SYST 140
[~2016-06-19 10:52] MED LIST: ALPR0.2583 PO; DOCU-144 PO; GABA-529 PO; HYDR-1189 PO; HYDR-4037 PO; LIP20 PO; LISI40TA4 PO; PARO-41 PO; PHEL5 PO; SENN-153 PO; WARF2TAB2 PO; WARF3TAB2 PO; ZOLP5TAB2 PO
[2016-06-19] MEDS ORDERED: cefTRIAXone 1 GM IVPB PREMIX 50 ML IV ONE (11:00)
[2016-06-19] MEDS ORDERED: ACETAMINOPHEN 325 MG TABLET PO ONE (12:15)
[2016-06-19] MEDS ORDERED: KETOROLAC TROMETHAMINE 15 MG VIAL IVP ONE (12:30)
[2016-06-19 12:50] LABS: BASOPHILS % (AUTO) 0.3 % (0.0-2.0); EOSINOPHILS # (AUTO) 0.1 K/uL (0.0-0.4); EOSINOPHILS % (AUTO) 0.8 % (0.0-4.0); HEMATOCRIT 39.1 % (36-48); HEMOGLOBIN 12.9 g/dL (12.0-16.0); LYMPHOCYTES # (AUTO) 2.1 K/uL (1.0-5.5); LYMPHOCYTES % (AUTO) 20.5 % (20.5-51.5); MEAN CORPUSCULAR HEMOGLOBIN 31 pg (27-31); MEAN CORPUSCULAR HGB CONC 33 % (32-36); MEAN CORPUSCULAR VOLUME 93 fL (79.0-98.0); MONOCYTES # (AUTO) 0.8 K/uL (0.0-1.0); MONOCYTES % (AUTO) 7.6 % (1.7-9.3); NEUTROPHILS # (AUTO) 7.2 K/uL (1.8-7.7); NEUTROPHILS % (AUTO) 70.8 % (40.0-70.0); PLATELET COUNT (AUTO) 260 K/uL (130-430); RED BLOOD CELL COUNT(AUTO) 4.22 MIL/uL (4.2-6.2); RED CELL DISTRIBUTION WIDTH 13.7 % (9.0-15.0); WHITE BLOOD COUNT (AUTO) 10.2 K/uL (4.8-10.8)
[2016-06-19 12:53] LABS: ANION GAP 7 (5-15); CALCIUM 9.3 mg/dL (8.4-11.0); CHLORIDE 106 mmol/L (98-107); CREATININE 0.76 mg/dL (0.55-1.30); GLUCOSE 103 mg/dL (70-99); POTASSIUM 3.5 mmol/L (3.5-5.1); SODIUM SERUM 146 mmol/L (136-145); UREA NITROGEN, BLOOD 35 mg/dL (8-21)
[2016-06-19 12:58] LABS: INR 1.1 (0.8-1.2); PROTHROMBIN TIME 12.3 SECS (9.5-12.5)
[2016-06-19] MEDS ORDERED: IPRATROPIUM BROM 0.5 MG/2.5 ML VIAL.NEB (ATROVENT) INH PRN (15:30)
[2016-06-19] MEDS ORDERED: ALPRAZolam 0.25 MG TABLET PO PRN (15:30)
[2016-06-19] MEDS ORDERED: SENNOSIDES 8.6 MG TABLET PO PRN (15:30)
[2016-06-19] MEDS ORDERED: ZOLPIDEM TARTRATE 5 MG TABLET PO PRN (15:30)
[2016-06-19] MEDS ORDERED: ALBUTEROL SULFATE 0.083% 2.5 MG/3 ML VIAL.NEB INH PRN (15:30)
[2016-06-19 15:40] VITALS: BP_SYST 127
[2016-06-19 18:00] VITALS: BP_SYST 127
[2016-06-19] MEDS: IPRATROPIUM BROM 0.5 MG/2.5 ML VIAL.NEB (ATROVENT) INH SCH (20:39)
[2016-06-19] MEDS: ALBUTEROL SULFATE 0.083% 2.5 MG/3 ML VIAL.NEB INH SCH ×2 (20:39→23:00)
[2016-06-19] MEDS: DOCUSATE SODIUM 100 MG CAPSULE PO SCH (21:20)
[2016-06-19] MEDS: ATORVASTATIN 20 MG TABLET PO SCH (21:21)
[2016-06-19] MEDS: ALPRAZolam 0.25 MG TABLET PO SCH (21:21)
[2016-06-19] MEDS: GABAPENTIN 100 MG CAPSULE PO SCH (21:21)
[2016-06-19] MEDS: SENNOSIDES 8.6 MG TABLET PO SCH (21:21)
[2016-06-19 21:29] LABS: HEMATOCRIT 39.8 % (36-48)
[2016-06-19 22:19] LABS: INR 1.1 (0.8-1.2); PROTHROMBIN TIME 11.8 SECS (9.5-12.5)
[2016-06-19 23:35] VITALS: BP_SYST 149
[2016-06-20] MEDS: HYDROcodone/ACETAMIN 5-325 MG TAB (NORCO/ VICODIN) PO PRN ×2 (03:55→18:07)
[2016-06-20 04:19] VITALS: BP_SYST 169
[2016-06-20 07:16] LABS: BASOPHILS % (AUTO) 0.2 % (0.0-2.0); EOSINOPHILS # (AUTO) 0.2 K/uL (0.0-0.4); EOSINOPHILS % (AUTO) 2.7 % (0.0-4.0); HEMATOCRIT 36.7 % (36-48); HEMOGLOBIN 12.3 g/dL (12.0-16.0); LYMPHOCYTES # (AUTO) 1.5 K/uL (1.0-5.5); LYMPHOCYTES % (AUTO) 17.6 % (20.5-51.5); MEAN CORPUSCULAR HEMOGLOBIN 31 pg (27-31); MEAN CORPUSCULAR HGB CONC 34 % (32-36); MEAN CORPUSCULAR VOLUME 92 fL (79.0-98.0); MONOCYTES # (AUTO) 0.6 K/uL (0.0-1.0); MONOCYTES % (AUTO) 7.3 % (1.7-9.3); NEUTROPHILS # (AUTO) 6.5 K/uL (1.8-7.7); NEUTROPHILS % (AUTO) 72.2 % (40.0-70.0); PLATELET COUNT (AUTO) 244 K/uL (130-430); RED BLOOD CELL COUNT(AUTO) 3.98 MIL/uL (4.2-6.2); RED CELL DISTRIBUTION WIDTH 13.7 % (9.0-15.0); WHITE BLOOD COUNT (AUTO) 8.8 K/uL (4.8-10.8)
[2016-06-20 07:37] LABS: INR 1.1 (0.8-1.2); PROTHROMBIN TIME 11.6 SECS (9.5-12.5)
[2016-06-20 08:00] VITALS: BP_SYST 140
[2016-06-20] MEDS: IPRATROPIUM BROM 0.5 MG/2.5 ML VIAL.NEB (ATROVENT) INH SCH ×5 (08:09→23:00)
[2016-06-20] MEDS: ALBUTEROL SULFATE 0.083% 2.5 MG/3 ML VIAL.NEB INH SCH ×5 (08:09→23:00)
[2016-06-20 08:17] LABS: ALANINE AMINOTRANSFERASE 31 U/L (12-78); ALBUMIN 3.4 g/dL (3.4-4.8); ANION GAP 8 (5-15); ASPARTATE AMINOTRANSFERASE 30 U/L (10-37); CALCIUM 9.3 mg/dL (8.4-11.0); CHLORIDE 104 mmol/L (98-107); CREATININE 0.68 mg/dL (0.55-1.30); GLUCOSE 98 mg/dL (70-99); POTASSIUM 3.3 mmol/L (3.5-5.1); SODIUM SERUM 143 mmol/L (136-145); TOTAL BILIRUBIN 0.5 mg/dL (0.0-1.0); TOTAL PROTEIN, SERUM 7.2 g/dL (6.4-8.3); UREA NITROGEN, BLOOD 29 mg/dL (8-21)
[2016-06-20] MEDS: LISINOPRIL 20 MG TABLET PO SCH (08:39)
[2016-06-20] MEDS: GABAPENTIN 100 MG CAPSULE PO SCH ×3 (08:39→21:11)
[2016-06-20] MEDS: ALPRAZolam 0.25 MG TABLET PO SCH ×3 (08:39→21:11)
[2016-06-20] MEDS: hydrALAZINE HCL 10 MG TABLET PO SCH (08:40)
[2016-06-20] MEDS: PARoxetine HCL 20 MG TABLET PO SCH (08:41)
[2016-06-20] MEDS: DOCUSATE SODIUM 100 MG CAPSULE PO SCH ×2 (08:44→21:11)
[2016-06-20 11:57] VITALS: BP_SYST 133
[2016-06-20] MEDS ORDERED: POTASSIUM CHLORIDE 20 MEQ TAB.PRT.SR PO ONE (14:15)
[2016-06-20 16:44] VITALS: BP_SYST 124
[2016-06-20 19:25] VITALS: BP_SYST 125
[2016-06-20] MEDS: ATORVASTATIN 20 MG TABLET PO SCH (21:11)
[2016-06-20] MEDS: SENNOSIDES 8.6 MG TABLET PO SCH (21:11)
[2016-06-21] VITALS (8 sets, daily range): BP systolic 91–173
[2016-06-21] MEDS: IPRATROPIUM BROM 0.5 MG/2.5 ML VIAL.NEB (ATROVENT) INH SCH ×6 (03:00→23:00)
[2016-06-21] MEDS: ALBUTEROL SULFATE 0.083% 2.5 MG/3 ML VIAL.NEB INH SCH ×6 (03:00→23:00)
[2016-06-21] MEDS: HYDROcodone/ACETAMIN 5-325 MG TAB (NORCO/ VICODIN) PO PRN ×2 (03:26→09:33)
[2016-06-21 07:24] LABS: INR 1.1 (0.8-1.2); PROTHROMBIN TIME 11.4 SECS (9.5-12.5)
[2016-06-21 07:28] LABS: BASOPHILS % (AUTO) 0.3 % (0.0-2.0); EOSINOPHILS # (AUTO) 0.3 K/uL (0.0-0.4); EOSINOPHILS % (AUTO) 4.2 % (0.0-4.0); HEMATOCRIT 34.5 % (36-48); HEMOGLOBIN 11.8 g/dL (12.0-16.0); LYMPHOCYTES # (AUTO) 1.5 K/uL (1.0-5.5); LYMPHOCYTES % (AUTO) 22.4 % (20.5-51.5); MEAN CORPUSCULAR HEMOGLOBIN 32 pg (27-31); MEAN CORPUSCULAR HGB CONC 34 % (32-36); MEAN CORPUSCULAR VOLUME 92 fL (79.0-98.0); MONOCYTES # (AUTO) 0.7 K/uL (0.0-1.0); NEUTROPHILS % (AUTO) 62.1 % (40.0-70.0); PLATELET COUNT (AUTO) 249 K/uL (130-430); RED BLOOD CELL COUNT(AUTO) 3.74 MIL/uL (4.2-6.2); RED CELL DISTRIBUTION WIDTH 13.9 % (9.0-15.0); WHITE BLOOD COUNT (AUTO) 6.5 K/uL (4.8-10.8)
[2016-06-21 07:39] LABS: ALANINE AMINOTRANSFERASE 28 U/L (12-78); ALBUMIN 3.4 g/dL (3.4-4.8); ANION GAP 5 (5-15); ASPARTATE AMINOTRANSFERASE 25 U/L (10-37); CALCIUM 9.5 mg/dL (8.4-11.0); CHLORIDE 106 mmol/L (98-107); CREATININE 0.87 mg/dL (0.55-1.30); GLUCOSE 106 mg/dL (70-99); POTASSIUM 3.4 mmol/L (3.5-5.1); SODIUM SERUM 144 mmol/L (136-145); TOTAL BILIRUBIN 0.4 mg/dL (0.0-1.0); TOTAL PROTEIN, SERUM 6.8 g/dL (6.4-8.3); UREA NITROGEN, BLOOD 30 mg/dL (8-21)
[2016-06-21] MEDS: PARoxetine HCL 20 MG TABLET PO SCH (08:43)
[2016-06-21] MEDS: GABAPENTIN 100 MG CAPSULE PO SCH ×3 (08:43→21:36)
[2016-06-21] MEDS: LISINOPRIL 20 MG TABLET PO SCH (08:43)
[2016-06-21] MEDS: DOCUSATE SODIUM 100 MG CAPSULE PO SCH ×2 (08:43→21:35)
[2016-06-21] MEDS: ALPRAZolam 0.25 MG TABLET PO SCH (08:44)
[2016-06-21] MEDS: hydrALAZINE HCL 10 MG TABLET PO SCH (08:44)
[2016-06-21] MEDS ORDERED: MORPHINE 2 MG/ML INJ. SYRINGE IVP PRN (12:45)
[2016-06-21] MEDS: HYDROmorphone 1 MG INJ. 1 MG/ML AMPUL IVP PRN ×3 (13:16→21:32)
[2016-06-21] MEDS ORDERED: cloNIDine HCL 0.1 MG TABLET PO PRN (14:00)
[2016-06-21] MEDS: clonazePAM 0.5 MG TABLET PO SCH ×2 (15:04→21:36)
[2016-06-21] MEDS: QUEtiapine FUMARATE 25 MG TABLET PO SCH ×2 (15:04→21:37)
[2016-06-21] MEDS ORDERED: ENOXAPARIN SODIUM 60 MG/0.6 ML SYRINGE SUBCUT SCH (21:00)
[2016-06-21] MEDS: ATORVASTATIN 20 MG TABLET PO SCH (21:36)
[2016-06-21] MEDS: SENNOSIDES 8.6 MG TABLET PO SCH (21:37)
[2016-06-22] VITALS (7 sets, daily range): BP systolic 99–131
[2016-06-22] MEDS: ALBUTEROL SULFATE 0.083% 2.5 MG/3 ML VIAL.NEB INH SCH ×4 (03:00→15:38)
[2016-06-22] MEDS: IPRATROPIUM BROM 0.5 MG/2.5 ML VIAL.NEB (ATROVENT) INH SCH ×4 (03:00→15:38)
[2016-06-22 07:32] LABS: BASOPHILS % (AUTO) 0.3 % (0.0-2.0); EOSINOPHILS # (AUTO) 0.5 K/uL (0.0-0.4); EOSINOPHILS % (AUTO) 4.4 % (0.0-4.0); HEMATOCRIT 35.9 % (36-48); HEMOGLOBIN 12.1 g/dL (12.0-16.0); LYMPHOCYTES # (AUTO) 1.6 K/uL (1.0-5.5); LYMPHOCYTES % (AUTO) 15.1 % (20.5-51.5); MEAN CORPUSCULAR HEMOGLOBIN 32 pg (27-31); MEAN CORPUSCULAR HGB CONC 34 % (32-36); MEAN CORPUSCULAR VOLUME 94 fL (79.0-98.0); MONOCYTES # (AUTO) 0.9 K/uL (0.0-1.0); MONOCYTES % (AUTO) 8.1 % (1.7-9.3); NEUTROPHILS # (AUTO) 7.5 K/uL (1.8-7.7); NEUTROPHILS % (AUTO) 72.1 % (40.0-70.0); PLATELET COUNT (AUTO) 246 K/uL (130-430); RED BLOOD CELL COUNT(AUTO) 3.83 MIL/uL (4.2-6.2); RED CELL DISTRIBUTION WIDTH 13.9 % (9.0-15.0)
[2016-06-22 07:53] LABS: ALANINE AMINOTRANSFERASE 27 U/L (12-78); ALBUMIN 3.3 g/dL (3.4-4.8); ANION GAP 4 (5-15); ASPARTATE AMINOTRANSFERASE 26 U/L (10-37); CALCIUM 9.4 mg/dL (8.4-11.0); CHLORIDE 108 mmol/L (98-107); CREATININE 0.77 mg/dL (0.55-1.30); GLUCOSE 109 mg/dL (70-99); POTASSIUM 3.5 mmol/L (3.5-5.1); SODIUM SERUM 143 mmol/L (136-145); TOTAL BILIRUBIN 0.5 mg/dL (0.0-1.0); TOTAL PROTEIN, SERUM 6.6 g/dL (6.4-8.3); UREA NITROGEN, BLOOD 34 mg/dL (8-21)
[2016-06-22 08:00] LABS: WHITE BLOOD COUNT (AUTO) 10.5 K/uL (4.8-10.8)
[2016-06-22] MEDS: hydrALAZINE HCL 10 MG TABLET PO SCH (09:00)
[2016-06-22] MEDS: LISINOPRIL 20 MG TABLET PO SCH (09:00)
[2016-06-22] MEDS: QUEtiapine FUMARATE 25 MG TABLET PO SCH ×2 (09:39→15:20)
[2016-06-22] MEDS: DOCUSATE SODIUM 100 MG CAPSULE PO SCH (09:39)
[2016-06-22] MEDS: clonazePAM 0.5 MG TABLET PO SCH ×2 (09:39→15:20)
[2016-06-22] MEDS: PARoxetine HCL 20 MG TABLET PO SCH (09:39)
[2016-06-22] MEDS: GABAPENTIN 100 MG CAPSULE PO SCH ×2 (09:39→15:20)
[2016-06-22] MEDS: HYDROmorphone 1 MG INJ. 1 MG/ML AMPUL IVP PRN (09:47)
[2016-06-22] MEDS: HYDROcodone/ACETAMIN 5-325 MG TAB (NORCO/ VICODIN) PO PRN ×2 (15:20→20:48)
== END 2016-06-22 21:05 | DRG 147 ==
LOC: SED 10:52 → STU 15:00
PROVIDERS: ADMIT Internal Medicine Hospice and Palliative Medicine; ATTEND Internal Medicine Hospice and Palliative Medicine
DX: C06.9 Malignant neoplasm of mouth, unspecified (principal); I69.351 Hemiplegia and hemiparesis following cerebral infarction affecting right dominant side; C76.0 Malignant neoplasm of head, face and neck; M19.90 Unspecified osteoarthritis, unspecified site; F29 Unspecified psychosis not due to a substance or known physiological condition; R13.10 Dysphagia, unspecified; I10 Essential (primary) hypertension; I48.0 Paroxysmal atrial fibrillation; J44.9 Chronic obstructive pulmonary disease, unspecified; I69.320 Aphasia following cerebral infarction; Z87.891 Personal history of nicotine dependence; Z79.01 Long term (current) use of anticoagulants; Z79.891 Long term (current) use of opiate analgesic; Z79.899 Other long term (current) drug therapy
CPT/HCPCS: 36415; 70490; 71010; 71250-TC; 80048; 80053; 83880; 85014-TC; 85025; 85049-TC; 85379; 85384-TC; 85610-TC; 85730-TC; 87040-TC; 87081; 93005; 94640; 94760; 96365; 96375; 99285; J0696; J1170; J1650; J1885; J2270

== ENCOUNTER 2016-10-16 11:42 | Inpatient (IN) | payer OTHER ==
[~2016-10-16] VITALS: Ht 167.6 cm; Wt 53.1 kg
[~2016-10-16 11:42] MED LIST changes: -WARF2TAB2 PO; -WARF3TAB2 PO
[2016-10-16] MEDS ORDERED: ACET-73 PO (14:25)
[2016-10-16 14:41] VITALS: BP_SYST 142
[2016-10-16] MEDS ORDERED: ACETAMINOPHEN 500 MG TABLET PO PRN (16:00)
[2016-10-16] MEDS ORDERED: HYDROcodone/ACETAMIN 5-325 MG TAB (NORCO/ VICODIN) PO PRN (16:00)
[2016-10-16] MEDS ORDERED: ZOLPIDEM TARTRATE 5 MG TABLET PO PRN (16:00)
[2016-10-16] MEDS ORDERED: ALPRAZolam 0.25 MG TABLET PO PRN (16:00)
[2016-10-16 16:09] LABS: BASOPHILS % (AUTO) 0.6 % (0.0-2.0); EOSINOPHILS # (AUTO) 0.1 K/uL (0.0-0.4); EOSINOPHILS % (AUTO) 1.9 % (0.0-4.0); HEMATOCRIT 39.5 % (36-48); HEMOGLOBIN 12.6 g/dL (12.0-16.0); LYMPHOCYTES % (AUTO) 30.1 % (20.5-51.5); MEAN CORPUSCULAR HEMOGLOBIN 29 pg (27-31); MEAN CORPUSCULAR HGB CONC 32 % (32-36); MEAN CORPUSCULAR VOLUME 89 fL (79.0-98.0); MONOCYTES # (AUTO) 0.8 K/uL (0.0-1.0); MONOCYTES % (AUTO) 12.2 % (1.7-9.3); NEUTROPHILS # (AUTO) 3.6 K/uL (1.8-7.7); NEUTROPHILS % (AUTO) 55.2 % (40.0-70.0); PLATELET COUNT (AUTO) 324 K/uL (130-430); RED BLOOD CELL COUNT(AUTO) 4.43 MIL/uL (4.2-6.2); RED CELL DISTRIBUTION WIDTH 14.3 % (9.0-15.0); WHITE BLOOD COUNT (AUTO) 6.5 K/uL (4.8-10.8)
[2016-10-16 16:11] VITALS: BP_SYST 159
[2016-10-16] MEDS ORDERED: hydrALAZINE HCL 20 MG/ML VIAL IVP PRN (16:15)
[2016-10-16] MEDS ORDERED: HYDR-4100 PO (16:17)
[2016-10-16 16:19] LABS: INR 1.1 (0.8-1.2); PROTHROMBIN TIME 12.1 SECS (9.5-12.5)
[2016-10-16 16:21] LABS: ALANINE AMINOTRANSFERASE 14 U/L (12-78); ALBUMIN 3.3 g/dL (3.4-4.8); ANION GAP 11 (5-15); ASPARTATE AMINOTRANSFERASE 10 U/L (10-37); CALCIUM 9.9 mg/dL (8.4-11.0); CHLORIDE 101 mmol/L (98-107); CREATININE 0.77 mg/dL (0.55-1.30); GLUCOSE 101 mg/dL (70-99); SODIUM SERUM 141 mmol/L (136-145); TOTAL BILIRUBIN 0.5 mg/dL (0.0-1.0); UREA NITROGEN, BLOOD 11 mg/dL (8-21)
[2016-10-16] MEDS ORDERED: SER25 PO (16:23)
[2016-10-16] MEDS ORDERED: ROCPM1 IV (16:23)
[2016-10-16] MEDS ORDERED: POTA20LI25 PO (16:23)
[2016-10-16] MEDS ORDERED: LACT10SO66 PO (16:23)
[2016-10-16] MEDS ORDERED: FENT1PAT4 TD (16:23)
[2016-10-16] MEDS ORDERED: fentaNYL 25 MCG/HR PATCH TD SCH (16:30)
[2016-10-16] MEDS ORDERED: ALBU2.5V7 INH ×2 (18:51)
[2016-10-16] MEDS: ALBUTEROL SULFATE 0.083% 2.5 MG/3 ML VIAL.NEB INH SCH (19:00)
[2016-10-16] MEDS ORDERED: cefTRIAXone 1 GM IVPB PREMIX 50 ML IV SCH (19:00)
[2016-10-16] MEDS ORDERED: ALBUTEROL SULFATE 0.083% 2.5 MG/3 ML VIAL.NEB INH PRN (19:00)
[2016-10-16 19:30] VITALS: BP_SYST 155
[2016-10-16 20:44] VITALS: BP_SYST 155
[2016-10-16] MEDS: QUEtiapine FUMARATE 25 MG TABLET PO SCH (21:06)
[2016-10-16] MEDS: ALPRAZolam 0.25 MG TABLET PO SCH (21:07)
[2016-10-16] MEDS: DOCUSATE SODIUM 100 MG CAPSULE PO SCH (21:07)
[2016-10-17 00:37] VITALS: BP_SYST 146
[2016-10-17] MEDS: ALBUTEROL SULFATE 0.083% 2.5 MG/3 ML VIAL.NEB INH SCH ×4 (01:10→19:47)
[2016-10-17 06:56] LABS: BASOPHILS # (AUTO) 0.1 K/uL (0.0-0.2); BASOPHILS % (AUTO) 0.9 % (0.0-2.0); EOSINOPHILS # (AUTO) 0.2 K/uL (0.0-0.4); HEMATOCRIT 37.1 % (36-48); HEMOGLOBIN 12.3 g/dL (12.0-16.0); LYMPHOCYTES # (AUTO) 1.5 K/uL (1.0-5.5); LYMPHOCYTES % (AUTO) 26.3 % (20.5-51.5); MEAN CORPUSCULAR HEMOGLOBIN 29 pg (27-31); MEAN CORPUSCULAR HGB CONC 33 % (32-36); MEAN CORPUSCULAR VOLUME 89 fL (79.0-98.0); MONOCYTES # (AUTO) 0.7 K/uL (0.0-1.0); MONOCYTES % (AUTO) 11.7 % (1.7-9.3); NEUTROPHILS # (AUTO) 3.1 K/uL (1.8-7.7); NEUTROPHILS % (AUTO) 58.1 % (40.0-70.0); PLATELET COUNT (AUTO) 257 K/uL (130-430); RED BLOOD CELL COUNT(AUTO) 4.19 MIL/uL (4.2-6.2); WHITE BLOOD COUNT (AUTO) 5.6 K/uL (4.8-10.8)
[2016-10-17 06:59] LABS: ANION GAP 6 (5-15); CALCIUM 9.5 mg/dL (8.4-11.0); CHLORIDE 101 mmol/L (98-107); CREATININE 0.84 mg/dL (0.55-1.30); GLUCOSE 106 mg/dL (70-99); SODIUM SERUM 138 mmol/L (136-145); UREA NITROGEN, BLOOD 14 mg/dL (8-21)
[2016-10-17 07:05] LABS: POTASSIUM 2.7 mmol/L (3.5-5.1)
[2016-10-17] MEDS ORDERED: CEFAZOLIN 1 GM IVPB PREMIX 50 ML IV ONE (08:15)
[2016-10-17 08:53] VITALS: BP_SYST 145
[2016-10-17] MEDS: LACTULOSE 20 GM/30 ML UDC PO SCH ×2 (09:00→10:06)
[2016-10-17] MEDS: POTASSIUM CHLORIDE 20 MEQ/PKT PACKET PO SCH (10:05)
[2016-10-17] MEDS: ALPRAZolam 0.25 MG TABLET PO SCH ×3 (10:06→22:26)
[2016-10-17] MEDS: LISINOPRIL 20 MG TABLET PO SCH (10:07)
[2016-10-17] MEDS: PARoxetine HCL 20 MG TABLET PO SCH (10:07)
[2016-10-17] MEDS: QUEtiapine FUMARATE 25 MG TABLET PO SCH ×2 (10:09→22:26)
[2016-10-17] MEDS: POTASSIUM CHLORIDE 20 MEQ TAB.PRT.SR PO SCH ×3 (10:09→22:27)
[2016-10-17] MEDS: DOCUSATE SODIUM 100 MG CAPSULE PO SCH ×2 (10:10→22:26)
[2016-10-17 12:00] VITALS: BP_SYST 110
[2016-10-17 16:05] VITALS: BP_SYST 141
[2016-10-17] MEDS: D5NS 1,000 ML IV SCH (17:37)
[2016-10-17] MEDS: CEFTRIAXONE SOD 1 GM/ D5W 50 ML IV SCH ×2 (17:48)
[2016-10-17 21:05] VITALS: BP_SYST 136
[2016-10-17 23:14] VITALS: BP_SYST 126
[2016-10-18] MEDS: ALBUTEROL SULFATE 0.083% 2.5 MG/3 ML VIAL.NEB INH SCH ×4 (01:56→20:02)
[2016-10-18 03:42] VITALS: BP_SYST 152
[2016-10-18 07:51] LABS: BASOPHILS % (AUTO) 0.7 % (0.0-2.0); EOSINOPHILS # (AUTO) 0.2 K/uL (0.0-0.4); EOSINOPHILS % (AUTO) 3.2 % (0.0-4.0); HEMATOCRIT 36.2 % (36-48); HEMOGLOBIN 12.3 g/dL (12.0-16.0); LYMPHOCYTES # (AUTO) 1.5 K/uL (1.0-5.5); LYMPHOCYTES % (AUTO) 29.8 % (20.5-51.5); MEAN CORPUSCULAR HEMOGLOBIN 30 pg (27-31); MEAN CORPUSCULAR HGB CONC 34 % (32-36); MEAN CORPUSCULAR VOLUME 89 fL (79.0-98.0); MONOCYTES # (AUTO) 0.6 K/uL (0.0-1.0); MONOCYTES % (AUTO) 11.8 % (1.7-9.3); NEUTROPHILS # (AUTO) 2.8 K/uL (1.8-7.7); NEUTROPHILS % (AUTO) 54.5 % (40.0-70.0); PLATELET COUNT (AUTO) 256 K/uL (130-430); RED BLOOD CELL COUNT(AUTO) 4.08 MIL/uL (4.2-6.2); RED CELL DISTRIBUTION WIDTH 13.7 % (9.0-15.0); WHITE BLOOD COUNT (AUTO) 5.1 K/uL (4.8-10.8)
[2016-10-18 07:58] LABS: INR 1.1 (0.8-1.2); PROTHROMBIN TIME 12.2 SECS (9.5-12.5)
[2016-10-18 08:00] LABS: ANION GAP 7 (5-15); CALCIUM 9.4 mg/dL (8.4-11.0); CHLORIDE 105 mmol/L (98-107); CREATININE 0.78 mg/dL (0.55-1.30); GLUCOSE 121 mg/dL (70-99); POTASSIUM 3.4 mmol/L (3.5-5.1); SODIUM SERUM 142 mmol/L (136-145); UREA NITROGEN, BLOOD 17 mg/dL (8-21)
[2016-10-18] MEDS: MEPERIDINE HCL/PF 100 MG/ML AMP ONE ×2 (08:03→08:36)
[2016-10-18] MEDS: MIDAZOLAM HCL 5 MG/5 ML VIAL ONE ×2 (08:03→08:37)
[2016-10-18 10:00] VITALS: BP_SYST 187
[2016-10-18] MEDS ORDERED: SIMETHICONE 40 MG/0.6 ML ML ONE (10:17)
[2016-10-18] MEDS: LACTULOSE 20 GM/30 ML UDC PO SCH (10:21)
[2016-10-18] MEDS: DOCUSATE SODIUM 100 MG CAPSULE PO SCH ×2 (10:21→22:54)
[2016-10-18] MEDS: POTASSIUM CHLORIDE 20 MEQ TAB.PRT.SR PO SCH ×2 (10:22→22:53)
[2016-10-18] MEDS: ALPRAZolam 0.25 MG TABLET PO SCH ×3 (10:22→22:54)
[2016-10-18] MEDS: POTASSIUM CHLORIDE 20 MEQ/PKT PACKET PO SCH (10:22)
[2016-10-18] MEDS: LISINOPRIL 20 MG TABLET PO SCH (10:26)
[2016-10-18] MEDS: PARoxetine HCL 20 MG TABLET PO SCH (10:27)
[2016-10-18] MEDS: QUEtiapine FUMARATE 25 MG TABLET PO SCH ×2 (10:33→22:54)
[2016-10-18] MEDS ORDERED: MAGNESIUM SULFATE 50 ML IV ONE (12:00)
[2016-10-18 12:41] VITALS: BP_SYST 166
[2016-10-18 16:14] VITALS: BP_SYST 151
[2016-10-18] MEDS: D5NS 1,000 ML IV SCH ×2 (16:23→17:08)
[2016-10-18] MEDS: HYDROcodone/ACETAMIN 10-325 MG TAB PO PRN (17:49)
[2016-10-18] MEDS: CEFTRIAXONE SOD 1 GM/ D5W 50 ML IV SCH ×2 (17:52)
[2016-10-18 20:20] VITALS: BP_SYST 146
[2016-10-18] MEDS: MUPIROCIN 2% TOPICAL OINTMENT 22 GM TP SCH (22:56)
[2016-10-18 23:33] VITALS: BP_SYST 154
[2016-10-19] MEDS: ALBUTEROL SULFATE 0.083% 2.5 MG/3 ML VIAL.NEB INH SCH ×3 (01:13→18:10)
[2016-10-19 02:56] VITALS: BP_SYST 144
[2016-10-19] MEDS: D5NS 1,000 ML IV SCH (06:31)
[2016-10-19 06:44] LABS: BASOPHILS % (AUTO) 0.2 % (0.0-2.0); EOSINOPHILS # (AUTO) 0.1 K/uL (0.0-0.4); EOSINOPHILS % (AUTO) 0.6 % (0.0-4.0); HEMATOCRIT 34.9 % (36-48); HEMOGLOBIN 11.6 g/dL (12.0-16.0); LYMPHOCYTES # (AUTO) 1.4 K/uL (1.0-5.5); LYMPHOCYTES % (AUTO) 15.4 % (20.5-51.5); MEAN CORPUSCULAR HEMOGLOBIN 30 pg (27-31); MEAN CORPUSCULAR HGB CONC 33 % (32-36); MEAN CORPUSCULAR VOLUME 89 fL (79.0-98.0); MONOCYTES # (AUTO) 0.7 K/uL (0.0-1.0); MONOCYTES % (AUTO) 7.1 % (1.7-9.3); NEUTROPHILS % (AUTO) 76.7 % (40.0-70.0); PLATELET COUNT (AUTO) 238 K/uL (130-430); RED BLOOD CELL COUNT(AUTO) 3.94 MIL/uL (4.2-6.2); RED CELL DISTRIBUTION WIDTH 13.7 % (9.0-15.0)
[2016-10-19 06:47] LABS: ANION GAP 4 (5-15); CHLORIDE 104 mmol/L (98-107); CREATININE 0.63 mg/dL (0.55-1.30); GLUCOSE 137 mg/dL (70-99); POTASSIUM 3.3 mmol/L (3.5-5.1); SODIUM SERUM 137 mmol/L (136-145); UREA NITROGEN, BLOOD 13 mg/dL (8-21)
[2016-10-19 06:58] LABS: WHITE BLOOD COUNT (AUTO) 9.2 K/uL (4.8-10.8)
[2016-10-19 08:00] VITALS: BP_SYST 155
[2016-10-19] MEDS: DOCUSATE SODIUM 100 MG CAPSULE PO SCH (11:29)
[2016-10-19] MEDS: LACTULOSE 20 GM/30 ML UDC PO SCH (11:29)
[2016-10-19] MEDS: POTASSIUM CHLORIDE 20 MEQ TAB.PRT.SR PO SCH (11:29)
[2016-10-19] MEDS: ALPRAZolam 0.25 MG TABLET PO SCH ×2 (11:30→17:55)
[2016-10-19] MEDS: QUEtiapine FUMARATE 25 MG TABLET PO SCH (11:30)
[2016-10-19] MEDS: PARoxetine HCL 20 MG TABLET PO SCH (11:30)
[2016-10-19] MEDS: MUPIROCIN 2% TOPICAL OINTMENT 22 GM TP SCH (11:31)
[2016-10-19] MEDS: LISINOPRIL 20 MG TABLET PO SCH (11:31)
[2016-10-19 12:23] VITALS: BP_SYST 158
[2016-10-19 15:25] VITALS: BP_SYST 149
[2016-10-19 16:22] VITALS: BP_SYST 149
[2016-10-19] MEDS: CEFTRIAXONE SOD 1 GM/ D5W 50 ML IV SCH ×2 (17:54)
[2016-10-19] MEDS: HYDROcodone/ACETAMIN 10-325 MG TAB PO PRN (17:59)
== END 2016-10-19 19:30 | DRG 147 ==
LOC: SMU 13:05
PROVIDERS: ADMIT Family Medicine; ATTEND Family Medicine
PROC: 02HV33Z Insertion of Infusion Device into Superior Vena Cava, Percutaneous Approach (ICD-10-PCS; 2016-10-17)
PROC: B548ZZA Ultrasonography of Superior Vena Cava, Guidance (ICD-10-PCS; 2016-10-17)
PROC: 0DH63UZ Insertion of Feeding Device into Stomach, Percutaneous Approach (ICD-10-PCS; principal; 2016-10-18 08:05)
DX: C10.9 Malignant neoplasm of oropharynx, unspecified (principal); C77.0 Secondary and unspecified malignant neoplasm of lymph nodes of head, face and neck; I69.351 Hemiplegia and hemiparesis following cerebral infarction affecting right dominant side; E44.0 Moderate protein-calorie malnutrition; I48.2 Chronic atrial fibrillation; E83.42 Hypomagnesemia; F03.90 Unspecified dementia, unspecified severity, without behavioral disturbance, psychotic disturbance, mood disturbance, and anxiety; B95.62 Methicillin resistant Staphylococcus aureus infection as the cause of diseases classified elsewhere; E86.0 Dehydration; I10 Essential (primary) hypertension; F32.9 Major depressive disorder, single episode, unspecified; Z66 Do not resuscitate; E78.5 Hyperlipidemia, unspecified; G89.29 Other chronic pain; M19.90 Unspecified osteoarthritis, unspecified site; E87.6 Hypokalemia; F41.1 Generalized anxiety disorder; I69.320 Aphasia following cerebral infarction; Z88.5 Allergy status to narcotic agent; Z87.891 Personal history of nicotine dependence; Z79.899 Other long term (current) drug therapy
CPT/HCPCS: 36415; 43246; 71010; 80048; 80053; 83735-TC; 85025; 85610-TC; 85730-TC; 87081; 94640; 94760; J0690; J0696; J2175; J2250; J3475; J7030; J7042; J7060